=== PATIENT | male | born 1940 | race Caucasian/White ===

== ENCOUNTER → 2024-01-04 09:38 | Outpatient (REF) | payer MEDICARE, SELFPAY ==
[2024-01-04 13:19] LABS: % Basophils 0.8 % (0-2); % Eosinophils 4.2 % (0-6); % Immature Granulocytes 0.3 % (0-0.5); % Lymphocytes 19.3 % (20.5-51.1); % Monocytes 9.1 % (1.7-9.3); % Neutrophils 66.3 % (42.2-75.2); Absolute Basophils 0.1 10^3/uL (0-0.2); Absolute Eosinophils 0.3 10^3/uL (0-0.7); Absolute Lymphocytes 1.2 10^3/uL (1.2-3.4); Absolute Monocytes 0.6 10^3/uL (0.1-0.6); Absolute Neutrophils 4.2 10^3/uL (1.4-6.5); Hematocrit 41.3 % (39.0-52.0); Hemoglobin 13.9 g/dL (13.0-18.0); Mean Corp Hgb Conc. 33.7 g/dL (33.0-37.0); Mean Platelet Volume 10.9 fL (7.4-10.4); Nucleated Red Blood Cells % 0 % (-); Platelet Count 208 10^3/uL (130-400); Red Blood Cell Count 4.49 10^6/uL (4.70-6.10); Red Cell Dist. Width 13.2 % (11.5-14.5); White Blood Cell Count 6.3 10^3/uL (4.8-10.8)
[2024-01-04 13:32] LABS: ALT (SGPT) 24 U/L (0-50); AST (SGOT) 33 U/L (17-59); Albumin 3.9 g/dl (3.5-5.0); Alkaline Phosphatase 62 U/L (38-126); Blood Urea Nitrogen 24 mg/dl (9-20); Calcium 9.8 mg/dl (8.4-10.2); Carbon Dioxide 28 mmol/L (22-30); Chloride 102 mmol/L (98-107); Glucose 131 mg/dl (70-99); HDL Cholesterol 34 mg/dl; LDL Cholesterol, Calculated 36 mg/dl; Potassium 4.7 mmol/L (3.5-5.1); Sodium 139 mmol/L (135-145); Total Bilirubin 1.8 mg/dl (0.2-1.3); Total Cholesterol 98 mg/dl (50-199); Total Protein 6.6 g/dl (6.3-8.2); Triglyceride 142 mg/dl (10-149); Very Low Density Lipoprotein 28 mg/dl (0-30); eGFR > 60.00
[2024-01-04 13:45] LABS: Vitamin D, 25-OH*** 64.8 ng/mL (30-80)
[2024-01-04 13:47] LABS: Microalbumin, Random Urine 1.4 mg/dl (0.6-1.7); Microalbumin/creatinine Ratio 9.6 mg/g
[2024-01-04 14:24] LABS: Glycohemoglobin (HgbA1c) 6.1 % (4.0-5.6)
== END ==
LOC: HWLAB 09:38
PROVIDERS: ATTENDING PHYSICIAN Internal Medicine
DX: Z95.810 Presence of automatic (implantable) cardiac defibrillator (principal); Z86.79 Personal history of other diseases of the circulatory system; K50.118 Crohn's disease of large intestine with other complication; L30.8 Other specified dermatitis; Z85.89 Personal history of malignant neoplasm of other organs and systems; E11.9 Type 2 diabetes mellitus without complications; Z86.19 Personal history of other infectious and parasitic diseases; E78.5 Hyperlipidemia, unspecified; K57.90 Diverticulosis of intestine, part unspecified, without perforation or abscess without bleeding; I48.0 Paroxysmal atrial fibrillation; K21.9 Gastro-esophageal reflux disease without esophagitis; E55.9 Vitamin D deficiency, unspecified
CPT/HCPCS: 36415; 80053; 80061; 82043; 82306; 82570; 83036; 85025

== ENCOUNTER → 2024-05-02 14:23 | Outpatient (REF) | payer MEDICARE, SELFPAY | LOC: CLAB 14:23 | PROVIDERS: ATTENDING PHYSICIAN Specialist | DX: N39.0 Urinary tract infection, site not specified (principal) | CPT/HCPCS: 87086 ==

== ENCOUNTER → 2024-07-17 09:05 | Outpatient (REF) | payer MEDICARE, SELFPAY ==
[2024-07-17 12:27] LABS: % Basophils 0.8 % (0-2); % Immature Granulocytes 0.3 % (0-0.5); % Lymphocytes 20.1 % (20.5-51.1); % Monocytes 10.3 % (1.7-9.3); % Neutrophils 64.5 % (42.2-75.2); Absolute Basophils 0.1 10^3/uL (0-0.2); Absolute Eosinophils 0.3 10^3/uL (0-0.7); Absolute Lymphocytes 1.3 10^3/uL (1.2-3.4); Absolute Monocytes 0.7 10^3/uL (0.1-0.6); Absolute Neutrophils 4.1 10^3/uL (1.4-6.5); Hematocrit 39.7 % (39.0-52.0); Hemoglobin 13.6 g/dL (13.0-18.0); Mean Corp Hgb Conc. 34.3 g/dL (33.0-37.0); Mean Corpuscular Hgb 31.5 pg (27.0-31.0); Mean Corpuscular Volume 91.9 fL (80.0-94.0); Mean Platelet Volume 10.6 fL (7.4-10.4); Nucleated Red Blood Cells % 0 % (-); Platelet Count 209 10^3/uL (130-400); Red Blood Cell Count 4.32 10^6/uL (4.70-6.10); Red Cell Dist. Width 12.6 % (11.5-14.5); White Blood Cell Count 6.3 10^3/uL (4.8-10.8)
[2024-07-17 12:40] LABS: ALT (SGPT) 22 U/L (0-50); AST (SGOT) 26 U/L (17-59); Albumin 4.2 g/dl (3.5-5.0); Alkaline Phosphatase 68 U/L (38-126); Blood Urea Nitrogen 21 mg/dl (9-20); Calcium 9.8 mg/dl (8.4-10.2); Carbon Dioxide 27 mmol/L (22-30); Chloride 104 mmol/L (98-107); Glucose 130 mg/dl (70-99); Potassium 4.6 mmol/L (3.5-5.1); Sodium 139 mmol/L (135-145); Total Bilirubin 1.3 mg/dl (0.2-1.3); Total Protein 6.8 g/dl (6.3-8.2); eGFR > 60.00
[2024-07-17 12:55] LABS: Vitamin D, 25-OH*** 37.5 ng/mL (30-80)
[2024-07-17 13:29] LABS: Vitamin B12 687 pg/ml (239-931)
[2024-07-17 15:29] LABS: Glycohemoglobin (HgbA1c) 6.5 % (4.0-5.6)
== END ==
LOC: HWLAB 09:05
PROVIDERS: ATTENDING PHYSICIAN Internal Medicine
DX: Z95.810 Presence of automatic (implantable) cardiac defibrillator (principal); Z86.79 Personal history of other diseases of the circulatory system; K50.118 Crohn's disease of large intestine with other complication; L30.8 Other specified dermatitis; Z85.89 Personal history of malignant neoplasm of other organs and systems; E11.9 Type 2 diabetes mellitus without complications; E78.5 Hyperlipidemia, unspecified; K57.90 Diverticulosis of intestine, part unspecified, without perforation or abscess without bleeding; I48.0 Paroxysmal atrial fibrillation; K21.9 Gastro-esophageal reflux disease without esophagitis; E55.9 Vitamin D deficiency, unspecified; K22.2 Esophageal obstruction; R91.8 Other nonspecific abnormal finding of lung field
CPT/HCPCS: 36415; 80053; 82306; 82607; 83036; 85025

== ENCOUNTER → 2025-01-23 07:15 | Outpatient (REF) | payer MEDICARE, SELFPAY ==
[2025-01-23 10:06] LABS: ALT (SGPT) 21 U/L (0-50); AST (SGOT) 22 U/L (17-59); Albumin 4.2 g/dl (3.5-5.0); Alkaline Phosphatase 67 U/L (38-126); Blood Urea Nitrogen 24 mg/dl (9-20); Calcium 9.5 mg/dl (8.4-10.2); Carbon Dioxide 25 mmol/L (22-30); Chloride 103 mmol/L (98-107); Glucose 124 mg/dl (70-99); HDL Cholesterol 30 mg/dl; LDL Cholesterol, Calculated 38 mg/dl; Potassium 4.4 mmol/L (3.5-5.1); Sodium 139 mmol/L (135-145); Total Bilirubin 1.7 mg/dl (0.2-1.3); Total Cholesterol 106 mg/dl (50-199); Total Protein 6.6 g/dl (6.3-8.2); Triglyceride 190 mg/dl (10-149); Very Low Density Lipoprotein 38 mg/dl (0-30); eGFR > 60.00
[2025-01-23 10:14] LABS: % Basophils 1.1 % (0-2); % Eosinophils 7.1 % (0-6); % Immature Granulocytes 0.3 % (0-0.5); % Lymphocytes 21.5 % (20.5-51.1); % Monocytes 11.8 % (1.7-9.3); % Neutrophils 58.2 % (42.2-75.2); Absolute Basophils 0.1 10^3/uL (0-0.2); Absolute Eosinophils 0.5 10^3/uL (0-0.7); Absolute Lymphocytes 1.4 10^3/uL (1.2-3.4); Absolute Monocytes 0.8 10^3/uL (0.1-0.6); Absolute Neutrophils 3.7 10^3/uL (1.4-6.5); Hematocrit 39.2 % (39.0-52.0); Hemoglobin 12.9 g/dL (13.0-18.0); Mean Corp Hgb Conc. 32.9 g/dL (33.0-37.0); Mean Corpuscular Hgb 30.3 pg (27.0-31.0); Mean Platelet Volume 10.4 fL (7.4-10.4); Nucleated Red Blood Cells % 0 % (-); Platelet Count 205 10^3/uL (130-400); Red Blood Cell Count 4.26 10^6/uL (4.70-6.10); White Blood Cell Count 6.4 10^3/uL (4.8-10.8)
[2025-01-23 10:33] LABS: Microalbumin, Random Urine 1.7 mg/dl (0.6-1.7); Microalbumin/creatinine Ratio 13.6 mg/g
[2025-01-23 12:12] LABS: Glycohemoglobin (HgbA1c) 6.2 % (4.0-5.6)
== END ==
LOC: HWLAB 07:15
PROVIDERS: ATTENDING PHYSICIAN Internal Medicine
DX: K50.118 Crohn's disease of large intestine with other complication (principal); Z85.89 Personal history of malignant neoplasm of other organs and systems; E11.9 Type 2 diabetes mellitus without complications
CPT/HCPCS: 36415; 80053; 80061; 82043; 82570; 83036; 85025

== ENCOUNTER → 2025-02-08 08:19 | Outpatient (REF) | payer MEDICARE, SELFPAY ==
[2025-02-08 09:57] LABS: % Basophils 0.8 % (0-2); % Eosinophils 5.3 % (0-6); % Immature Granulocytes 0.3 % (0-0.5); % Lymphocytes 19.5 % (20.5-51.1); % Neutrophils 64.1 % (42.2-75.2); Absolute Basophils 0.1 10^3/uL (0-0.2); Absolute Eosinophils 0.3 10^3/uL (0-0.7); Absolute Lymphocytes 1.2 10^3/uL (1.2-3.4); Absolute Monocytes 0.6 10^3/uL (0.1-0.6); Absolute Neutrophils 3.8 10^3/uL (1.4-6.5); Hematocrit 39.7 % (39.0-52.0); Hemoglobin 13.3 g/dL (13.0-18.0); Mean Corp Hgb Conc. 33.5 g/dL (33.0-37.0); Mean Corpuscular Hgb 30.8 pg (27.0-31.0); Mean Corpuscular Volume 91.9 fL (80.0-94.0); Nucleated Red Blood Cells % 0 % (-); Platelet Count 145 10^3/uL (130-400); Red Blood Cell Count 4.32 10^6/uL (4.70-6.10); Red Cell Dist. Width 12.8 % (11.5-14.5); Reticulocyte Count 1.5 % (0.4-2.8); White Blood Cell Count 5.9 10^3/uL (4.8-10.8)
[2025-02-08 10:40] LABS: Vitamin D, 25-OH*** 75.6 ng/mL (30-80)
[2025-02-08 10:50] LABS: ALT (SGPT) 25 U/L (0-50); AST (SGOT) 26 U/L (17-59); Alkaline Phosphatase 56 U/L (38-126); Blood Urea Nitrogen 21 mg/dl (9-20); Calcium 9.6 mg/dl (8.4-10.2); Carbon Dioxide 24 mmol/L (22-30); Chloride 105 mmol/L (98-107); Direct Bilirubin 0.3 mg/dl (0.0-0.4); Glucose 113 mg/dl (70-99); Potassium 4.5 mmol/L (3.5-5.1); Sodium 140 mmol/L (135-145); Total Bilirubin 1.8 mg/dl (0.2-1.3); Total Protein 6.9 g/dl (6.3-8.2); eGFR > 60.00
[2025-02-08 10:53] LABS: Albumin 4.1 g/dl (3.5-5.0)
== END ==
LOC: HWLAB 08:19
PROVIDERS: ATTENDING PHYSICIAN Internal Medicine
DX: E55.9 Vitamin D deficiency, unspecified (principal); D64.9 Anemia, unspecified; R17 Unspecified jaundice; D72.10 Eosinophilia, unspecified
CPT/HCPCS: 36415; 80053; 82248; 82306; 85025; 85045

== ENCOUNTER → 2025-04-13 14:55 | Outpatient (REF) | payer MEDICARE, SELFPAY ==
[2025-04-13 17:10] LABS: Urine Albumin Negative (Neg - Trace); Urine Bilirubin Negative (Negative); Urine Character Clear (Clear); Urine Color Yellow; Urine Glucose Negative (Negative); Urine Ketone Negative (Negative); Urine Leukocyte 1+ (Negative); Urine Nitrite Negative (Negative); Urine Occult Blood Negative (Negative); Urine Urobilinogen Negative (Neg - 1+)
[2025-04-13 17:24] LABS: Urine Mucus Few; Urine Red Blood Cell 0-2 /HPF (0-2); Urine Squamous Cell 0-2 /LPF (Few)
[2025-04-13 17:25] LABS: Urine Bacteria Moderate (Negative)
== END ==
LOC: CLAB 14:55
PROVIDERS: ATTENDING PHYSICIAN Specialist
DX: N39.0 Urinary tract infection, site not specified (principal)
CPT/HCPCS: 81003; 81015; 87086

== ENCOUNTER → 2025-04-13 15:34 | Outpatient (REF) | payer MEDICARE, SELFPAY | LOC: RAD 15:34 | PROVIDERS: ATTENDING PHYSICIAN Specialist; FAMILY PHYSICIAN Internal Medicine | DX: N20.0 Calculus of kidney (principal) | CPT/HCPCS: 74176 ==

== ENCOUNTER → 2025-05-02 13:28 | Outpatient (REF) | payer MEDICARE, SELFPAY | LOC: SDSPAT 13:28 | PROVIDERS: ATTENDING PHYSICIAN Specialist; FAMILY PHYSICIAN Internal Medicine | DX: N21.0 Calculus in bladder (principal); N20.0 Calculus of kidney | CPT/HCPCS: 36415; 93005 ==

== ENCOUNTER 2025-05-11 06:13 | Day surgery (SDC) | payer MEDICARE, SELFPAY ==
[2025-05-02 13:59] VITALS: BMI 25.0
[2025-05-11] VITALS (11 sets, daily range): BP systolic 120–151; BP diastolic 67–91; BMI 25.0
[2025-05-11 08:32] LABS: Glucose - Point of Care 125 mg/dl (70-99)
[2025-05-11] MEDS: DILAUDID 0.5 MG IV (11:06)
[2025-05-11] MEDS: DILAUDID 0.25 MG IV (11:32)
[2025-05-11] MEDS: DETROL LA 4 MG PO (11:40)
== END 2025-05-11 13:24 | disposition home or self-care (01) ==
LOC: SDS 06:13
PROVIDERS: ATTENDING PHYSICIAN Specialist; FAMILY PHYSICIAN Internal Medicine
DX: N20.0 Calculus of kidney (principal); N21.0 Calculus in bladder; N13.8 Other obstructive and reflux uropathy
CPT/HCPCS: 52356; 52318; 74018; 76000; 82365; 82962; C1894; C2617

== ENCOUNTER 2025-05-22 06:30 | Day surgery (SDC) | payer MEDICARE, SELFPAY ==
[2025-05-22] VITALS (7 sets, daily range): BP systolic 129–155; BP diastolic 74–97; BMI 22.5
[2025-05-22] MEDS: NORMOSOL-R/PLASMALYTE-A 1000 IV (09:34)
[2025-05-22 09:43] LABS: Glucose - Point of Care 111 mg/dl (70-99)
[2025-05-22 11:31] LABS: Glucose - Point of Care 99 mg/dl (70-99)
[2025-05-22 13:39] LABS: Glucose - Point of Care 94 mg/dl (70-99)
== END 2025-05-22 15:10 | disposition home or self-care (01) ==
LOC: SDS 06:30
PROVIDERS: ATTENDING PHYSICIAN Specialist
DX: N20.0 Calculus of kidney (principal)
CPT/HCPCS: 52352; 52332; 74018; 76000; 82365; 82962; C1894; C2617

== ENCOUNTER → 2025-08-28 08:42 | Outpatient (REF) | payer MEDICARE, SELFPAY | LOC: HWRAD 08:42 | PROVIDERS: ATTENDING PHYSICIAN Specialist; FAMILY PHYSICIAN Internal Medicine | DX: N20.0 Calculus of kidney (principal) | CPT/HCPCS: 74176 ==